=== PATIENT | female | born 1950 | race Caucasian/White ===

== ENCOUNTER → 2016-12-15 | Outpatient (CLI) | payer OTHER ==
[~2016-12-15] MED LIST: ASPEC81 PO; CLTP PO; EVS60 PO; INDSR/120 PO; SUMA50TA15 PO; SUMA6KIT
== END | disposition home or self-care (01) ==
LOC: C.PAPS 10:15
PROVIDERS: ATTEND Obstetrics & Gynecology
DX: Z12.4 Encounter for screening for malignant neoplasm of cervix (principal)

== ENCOUNTER → 2017-08-26 | Outpatient (CLI) | payer OTHER ==
--- NOTE | 2017-08-29 07:48 | MAMMOGRAPHY REPORT ---
BILATERAL DIGITAL SCREENING MAMMOGRAM TOMOSYNTHESIS WITH CAD: 08/26/2017 CLINICAL HISTORY: Routine screening. Patient has no complaints. TECHNIQUE: Breast tomosynthesis in addition to standard 2D mammography was performed. Current study was also evaluated with a Computer Aided Detection (CAD) system. COMPARISON: Comparison is made to exams dated: 08/17/2016 mammogram, 08/12/2015 mammogram, 4 mammogram, 08/02/2013 mammogram, 08/28/2012 ultrasound, and 07/26/2012 mammogram - [facility]. BREAST COMPOSITION: There are scattered areas of fibroglandular density in both breasts. FINDINGS: There is a partially visualized 6 mm mass within the left lateral posterior breast seen on the cc tomosynthesis images only, which may represent a normal intramammary lymph node although it i s newly visualized, therefore, recommend additional imaging evaluation with spot compression tomosynt hesis views and possible breast ultrasound. The remainder of both breasts are stable compared to prior exams, without suspicious masses, calcific ations, or areas of architectural distortion noted. IMPRESSION: ACR BI-RADS CATEGORY 0: INCOMPLETE EVALUATION: NEED ADDITIONAL IMAGING EVALUATION Left breast mass, for which additional imaging evaluation is recommended. The patient will be called to schedule an appointment. Approximately 10% of breast cancers are not detected with mammography. A negative mammographic report should not delay biopsy if a clinically suggestive mass is present. Carlene Bowen M.D. ah/:08/26/2017 16:05:54 Commercial Attorney: Danielle THAO(Kristopher)(Chad), [facility] letter sent: Addl Imaging 0 BI-RADS Code: ACR BI-RADS Category 0: Incomplete Evaluation: Need Additional Imaging Evaluation
== END | disposition home or self-care (01) ==
LOC: C.MAMM 10:03
PROVIDERS: ATTEND Obstetrics & Gynecology
DX: Z12.31 Encounter for screening mammogram for malignant neoplasm of breast (principal); N63.0 Unspecified lump in unspecified breast

== ENCOUNTER → 2017-09-07 | Outpatient (CLI) | payer OTHER ==
--- NOTE | 2017-09-07 14:12 | MAMMOGRAPHY REPORT ---
UNILATERAL LEFT DIGITAL DIAGNOSTIC MAMMOGRAM TOMOSYNTHESIS AND TARGETED LEFT ULTRASOUND: 09/07/2017 CLINICAL HISTORY: Callback from screening mammogram for left breast mass. TECHNIQUE: Breast tomosynthesis in addition to standard 2D mammography was performed. Spot compress ion left XCCL tomosynthesis images including C views were obtained. COMPARISON: Comparison is made to exams dated: 08/26/2017 mammogram, 08/17/2016 mammogram, 08/12/2015 mammogram, 08/06/2014 mammogram, 08/02/2013 mammogram, and 07/26/2012 mammogram - [facility]. BREAST COMPOSITION: There are scattered areas of fibroglandular density in the left breast. FINDINGS: Spot compression views of the left breast demonstrate a lobulated circumscribed 9 mm mass w ithin the left lateral posterior breast, which corresponds with the partially visualized mass seen on the recent screening mammogram. A central fat density portion is seen, suggestive of a fatty hilum as seen with normal lymph nodes. Targeted ultrasound was performed of the left lateral breast in the region of the mammographic mass. In the left breast at 4:00, approximately 12 cm from the nipple, there is a circumscribed hypoechoic 7 x 3 x 7 mm mass, which contains a central echogenic fatty hilum and central internal vascularity. This corresponds with the mammographic mass and is benign and compatible with a morphologically norm al intramammary lymph node. IMPRESSION: ACR BI-RADS CATEGORY 2: BENIGN, TARGETED ULTRASOUND ACR BI-RADS CATEGORY 2: BENIGN The mammographic mass corresponds with a morphologically normal 7 mm intramammary lymph node in the l eft 4:00 breast on ultrasound. There is no mammographic or targeted sonographic evidence of malignan cy. A 1 year screening mammogram is recommended. The patient has been verbally notified of the resul ts. Approximately 10% of breast cancers are not detected with mammography. A negative mammographic report should not delay biopsy if a clinically suggestive mass is present. Carlene Bowen M.D. /:09/07/2017 13:16:37 Chart Reader: Erin AHN)(Chad), [facility] letter sent: Normal 1/2 BI-RADS Code: ACR BI-RADS Category 2: Benign Ultrasound BI-RADS: ACR BI-RADS Category 2: Benign
== END | disposition home or self-care (01) ==
LOC: C.MAMM 12:50
PROVIDERS: ATTEND Obstetrics & Gynecology
DX: R59.0 Localized enlarged lymph nodes (principal)

== ENCOUNTER → 2017-10-12 | Outpatient (CLI) | payer OTHER | END | disposition home or self-care (01) | LOC: C.LABBC 14:42 | PROVIDERS: ATTEND Internal Medicine | DX: M85.80 Other specified disorders of bone density and structure, unspecified site (principal); G25.2 Other specified forms of tremor ==

== ENCOUNTER → 2017-12-16 | Outpatient (CLI) | payer OTHER | END | disposition home or self-care (01) | LOC: C.PAPS 13:55 | PROVIDERS: ATTEND Obstetrics & Gynecology | DX: Z01.419 Encounter for gynecological examination (general) (routine) without abnormal findings (principal) ==